=== PATIENT | female | born 1975 | race African-American/Black ===

== ENCOUNTER → 2018-06-18 | Outpatient (CLI) | payer BC ==
[2016-01-19 02:20] VITALS: BP 104/73
[2018-06-19 09:10] LABS: EBNA IGG >600.0 U/mL (0.0-17.9)
== END | disposition home or self-care (01) ==
LOC: LAB 12:13
PROVIDERS: ATTEND General Practice
DX: R53.83 Other fatigue (principal); J45.909 Unspecified asthma, uncomplicated
CPT/HCPCS: 36415; 86644; 86645; 86663; 86664

== ENCOUNTER → 2018-10-21 | Outpatient (CLI) | payer BC ==
[2016-01-19 02:20] VITALS: BP 104/73
--- NOTE | 2018-10-21 16:56 | RAD ---
CT abdomen and pelvis without contrast 10/21/2017 Clinical Indication: Left flank pain with dysuria Comparison: None Technique: Multiple CT images of the abdomen and pelvis were obtained without contrast. *One or more of the following individualized dose reduction techniques were utilized for this examination: 1. Automated exposure control. 2. Adjustment of the mA and/or kV according to patient size. 3. Use of iterative reconstruction technique. Findings: Evaluation of the solid abdominopelvic viscera, vasculature and lymphadenopathy are limited in the absence of intravenous contrast. Heart size is normal. Visualized lung bases are clear. Unenhanced contours of the liver, gallbladder, spleen, adrenal glands, pancreas and right kidney are grossly unremarkable. No hydronephrosis or nephrolithiasis. There is a hypodensity in the posterior superior pole the left kidney measuring 0.6 cm series 2/image 43. The abdominal aorta is normal in caliber. Small and large bowel loops are normal in caliber without obstruction. Appendix is normal in appearance. No abdominal free fluid. No pneumoperitoneum. Left adnexal hypodensity with thin internal septation measuring 5.9 x 4.8 cm in conglomerate. Right adnexa grossly unremarkable. Prior hysterectomy with the vaginal cuff unremarkable. Left infraumbilical fat-containing ventral hernia with the neck measuring 3.4 cm and no internal fat stranding or fluid. There is a similar-appearing fat-containing ventral hernia on the right at the same level with the neck measuring 2.3 cm with no internal stranding or fluid. Mildly distended and unopacified urinary bladder is unremarkable. Mild T11-T12 disc degeneration. Mild bilateral sacroiliitis without fusion or erosions. Impression: 1. No hydronephrosis or nephrolithiasis. 2. Indeterminate left renal hypodensity measuring 0.6 cm. Due to body habitus, renal ultrasound may be of limited utility and CT or MRI with and without contrast renal protocol is recommended for further evaluation. 3. Left adnexal complex cystic structure with internal septation versus 2 adjacent cysts. Transabdominal and endovaginal pelvic ultrasound is recommended for further evaluation. 4. Bilateral infraumbilical fat-containing lateral abdominal wall hernias. Electronically signed by: Ramón Topete MD (10/21/2018 4:52 PM) [id number]
== END | disposition home or self-care (01) ==
LOC: CT 16:18
PROVIDERS: ATTEND General Practice
DX: K43.9 Ventral hernia without obstruction or gangrene (principal); M46.1 Sacroiliitis, not elsewhere classified; M51.34 Other intervertebral disc degeneration, thoracic region
CPT/HCPCS: 74176

== ENCOUNTER → 2019-03-02 | Outpatient (CLI) | payer BC ==
[2016-01-19 02:20] VITALS: BP 104/73
--- NOTE | 2019-03-02 17:00 | CARD ---
MR#: [id number] Date of Study: 03/02/2019 Ordering Physician: NESS SHARMA, Referring Physician: NESS SHARMA, Tech: Marimar Waite APPROVED REPORT EXAM: Two-dimensional and M-mode echocardiogram with Doppler and color Doppler. Other Information Quality : AverageHR: 61bpm Technically limited study due to body habitus INDICATION Murmur 2D DIMENSIONS RVDd3.4 (2.9-3.5cm)Left Atrium(2D)3.2 (1.6-4.0cm) IVSd1.1 (0.7-1.1cm)Aortic Root(2D)2.9 (2.0-3.7cm) LVDd4.7 (3.9-5.9cm)LVOT Diameter2.0 (1.8-2.4cm) PWd0.8 (0.7-1.1cm)LVDs2.9 (2.5-4.0cm) FS (%) 38.1 %SV68.3 ml Aortic Valve AoV Peak Angelo.141.0cm/sAoV VTI31.0cm AO Peak GR.8.0mmHgLVOT Peak Angelo.113.1cm/s LVOT VTI 25.94cmAO Mean GR.5mmHg KAYLIN (VMAX)2.13cc9KIF (VTI)2.64cm2 Mitral Valve MV E Ehycyytm09.2cm/sMV DECEL [id number] MV A Aefjhojw54.1cm/sE/A Ratio1.4 Pulmonary Valve PV Peak Zxccgnlf57.8cm/sPV Peak Grad.2mmHg Pulmonary Vein S1 Shzcisvo23.2cm/sD2 Qovsxpda22.0cm/s LEFT VENTRICLE The left ventricle is normal size. There is borderline concentric left ventricular hypertrophy. The l eft ventricular systolic function is normal and the ejection fraction is within normal range. The Eje ction Fraction is 55-60%. There is normal LV segmental wall motion. The left ventricular diastolic fu nction and filling is normal for age. RIGHT VENTRICLE The right ventricle is normal size. There is normal right ventricular wall thickness. The right ventr icular systolic function is normal. ATRIA The left atrium size is normal. The right atrium size is normal. The interatrial septum is intact wit h no evidence for an atrial septal defect or patent foramen ovale as noted on 2-D or Doppler imaging. AORTIC VALVE The aortic valve is normal in structure and function. Doppler and Color Flow revealed no significant aortic regurgitation. There is no significant aortic valvular stenosis. MITRAL VALVE The mitral valve is thickened but opens well. There is no evidence of mitral valve prolapse. There is no mitral valve stenosis. Doppler and Color Flow revealed no mitral valve regurgitation noted. TRICUSPID VALVE The tricuspid valve is normal in structure and function. Doppler and Color Flow revealed trace tricus pid regurgitation. There is no tricuspid valve stenosis. PULMONIC VALVE The pulmonary valve is normal in structure and function. Doppler and Color Flow revealed no pulmonic valvular regurgitation. GREAT VESSELS The aortic root is normal in size. The IVC is normal in size and collapses >50% with inspiration. PERICARDIAL EFFUSION There is no evidence of significant pericardial effusion. Critical Notification Critical Value: No <Conclusion> The left ventricle is normal size. The left ventricular systolic function is normal and the ejection fraction is within normal range. The Ejection Fraction is 55-60%. There is borderline concentric left ventricular hypertrophy. There is no significant aortic valvular stenosis. Doppler and Color Flow revealed no significant aortic regurgitation. Doppler and Color Flow revealed no mitral valve regurgitation noted. Doppler and Color Flow revealed trace tricuspid regurgitation. Signed by : Ness Sharma MD Electronically Approved : 03/02/2019 17:00:04
== END | disposition home or self-care (01) ==
LOC: ECHO 13:48
PROVIDERS: ATTEND Internal Medicine Cardiovascular Disease
DX: I51.7 Cardiomegaly (principal)
CPT/HCPCS: 93306

== ENCOUNTER → 2019-03-30 | Outpatient (CLI) | payer BC ==
[2016-01-19 02:20] VITALS: BP 104/73
--- NOTE | 2019-03-30 17:51 | RAD ---
Chest, 2 views, 03/30/2019: HISTORY: Chest pain, shortness of breath Comparison is made to a study from 08/16/2015. The heart size and pulmonary vascularity are normal. No pulmonary infiltrate is seen. There is no evidence of pleural fluid. IMPRESSION: No acute cardiopulmonary abnormality is detected. Electronically signed by: Yvan Garcia MD (03/30/2019 5:48 PM) [facility]
== END | disposition home or self-care (01) ==
LOC: DXRAD 12:55
PROVIDERS: ATTEND General Practice
DX: R06.2 Wheezing (principal); R07.9 Chest pain, unspecified; R06.09 Other forms of dyspnea; R06.02 Shortness of breath
CPT/HCPCS: 71046

== ENCOUNTER → 2021-01-25 | Outpatient (CLI) | payer BC ==
[2016-01-19 02:20] VITALS: BP 104/73
--- NOTE | 2021-01-25 15:56 | RAD ---
PA and lateral views of the chest. Comparison: None. Indication: History of Covid with dyspnea on exertion Findings: The heart size is normal. No pneumothorax or effusion. No air space or interstitial disease. The bon y structures are intact. Impression: 1. No acute cardiopulmonary process. Electronically signed by: Wilmar Schulte MD (01/25/2021 3:54 PM) [id number]
== END ==
LOC: RAD 15:00
PROVIDERS: ATTEND Nurse Practitioner Family
DX: R06.02 Shortness of breath (principal); Z86.16 Personal history of COVID-19
CPT/HCPCS: 71046